=== PATIENT | male | born 1950 | race Caucasian/White ===

== ENCOUNTER 2023-06-11 18:58 | Emergency (ER) | payer SELFPAY ==
[~2023-06-11] VITALS: Ht 165.1 cm; Wt 56.7 kg
[2023-06-11 19:12] VITALS: BP 111/60; PULSE 84; RESP 16; TEMP 98.6; O2SAT 99
[2023-06-11 21:34] LABS: BASOPHILS % 1.6 % (0.0-2.0); DIFFERENTIAL COMMENT 0; EOSINOPHILS % 2.1 % (0.0-5.0); HEMATOCRIT. 38.7 % (42.0-52.0); HEMOGLOBIN. 12.9 g/dL (14.0-18.0); LYMPHOCYTES % 21.1 % (20.0-50.0); MEAN CORPUSCULAR HEMOGLOBIN 34.2 pg (28.0-32.0); MEAN CORPUSCULAR HGB CONC 33.3 g/dL (31.0-37.0); MEAN CORPUSCULAR VOLUME 102.6 fL (80.0-94.0); MEAN PLATELET VOLUME 8.7 fl (7.4-10.4); MONOCYTES % 8.2 % (2.0-8.0); PLATELET 98 x1000/uL (130-400); RED BLOOD CELL COUNT 3.77 mill/uL (4.7-6.1); RED CELL DISTRIBUTION WIDTH 15.6 % (11.6-14.6); WHITE BLOOD COUNT 4.6 x1000/uL (4.5-11.0)
[2023-06-11 21:35] LABS: PROTHROMBIN TIME 10.5 sec (9.6-11.0)
[2023-06-11 21:43] LABS: ALANINE AMINOTRANSFERASE 118 IU/L (10-49); ALBUMIN 3.9 g/dL (3.2-4.8); ASPARTATE AMINOTRANSFERASE 232 IU/L (<34); BILIRUBIN TOTAL 0.5 mg/dL (0.1-1.0); CALCIUM 9.8 mg/dL (8.7-10.4); CARBON DIOXIDE 24 mEq/L (21-32); CHLORIDE 107 mEq/L (98-107); CREATININE 0.8 mg/dL (0.6-1.3); ETHANOL BLOOD 253 mg/dL (<10); GLUCOSE 121 mg/dL (70-105); POTASSIUM 4.7 mEq/L (3.5-5.1); PROTEIN TOTAL 6.4 g/dL (6.0-8.3); SODIUM 144 mEq/L (136-145); TROPONIN I HIGH SENSITIVITY 5 ng/L (3.0-53); UREA NITROGEN BLOOD 14 mg/dL (9-23)
== END 2023-06-11 21:34 | disposition home or self-care (01) ==
LOC: ER 18:58
DX: F10.129 Alcohol abuse with intoxication, unspecified (principal); J45.909 Unspecified asthma, uncomplicated; E11.9 Type 2 diabetes mellitus without complications; I10 Essential (primary) hypertension; Z98.890 Other specified postprocedural states; Y90.8 Blood alcohol level of 240 mg/100 ml or more
CPT/HCPCS: 36415; 71045; 80053; 80320; 84484; 85025; 93005; 99285; G0480

== ENCOUNTER 2023-06-12 11:20 | Emergency (ER) | payer SELFPAY ==
[~2023-06-12] VITALS: Ht 167.6 cm; Wt 77.0 kg
[2023-06-12 11:57] VITALS: O2SAT 97
[2023-06-12 12:25] LABS: BASOPHILS % 1.5 % (0.0-2.0); EOSINOPHILS % 1.4 % (0.0-5.0); HEMATOCRIT. 40.4 % (42.0-52.0); HEMOGLOBIN. 13.2 g/dL (14.0-18.0); LYMPHOCYTES % 22.4 % (20.0-50.0); MEAN CORPUSCULAR HEMOGLOBIN 33.8 pg (28.0-32.0); MEAN CORPUSCULAR HGB CONC 32.6 g/dL (31.0-37.0); MEAN CORPUSCULAR VOLUME 103.8 fL (80.0-94.0); MONOCYTES % 5.2 % (2.0-8.0); NEUTROPHILS % 69.5 % (40.0-76.0); RED BLOOD CELL COUNT 3.89 mill/uL (4.7-6.1); RED CELL DISTRIBUTION WIDTH 15.4 % (11.6-14.6)
[2023-06-12 12:29] LABS: DIFFERENTIAL COMMENT 1
[2023-06-12 12:44] LABS: ALANINE AMINOTRANSFERASE 107 IU/L (10-49); ALBUMIN 4.2 g/dL (3.2-4.8); ASPARTATE AMINOTRANSFERASE 181 IU/L (<34); BILIRUBIN TOTAL 0.8 mg/dL (0.1-1.0); CALCIUM 9.4 mg/dL (8.7-10.4); CARBON DIOXIDE 25 mEq/L (21-32); CHLORIDE 102 mEq/L (98-107); CREATININE 0.6 mg/dL (0.6-1.3); GLUCOSE 92 mg/dL (70-105); POTASSIUM 4.6 mEq/L (3.5-5.1); PROTEIN TOTAL 7.7 g/dL (6.0-8.3); SODIUM 136 mEq/L (136-145); UREA NITROGEN BLOOD 13 mg/dL (9-23)
[2023-06-12 13:28] LABS: PLATELET 112 x1000/uL (130-400)
[2023-06-12 21:00] VITALS: BP 146/59; PULSE 81; RESP 16; TEMP 98
== END 2023-06-12 21:15 | disposition home or self-care (01) ==
LOC: ER 12:31
DX: B34.9 Viral infection, unspecified (principal); J45.909 Unspecified asthma, uncomplicated; R51.9 Headache, unspecified; E11.9 Type 2 diabetes mellitus without complications; I10 Essential (primary) hypertension; Z98.890 Other specified postprocedural states; Z20.822 Contact with and (suspected) exposure to COVID-19
CPT/HCPCS: 36415; 80053; 85025; 87426; 87804; 93005; 99284

== ENCOUNTER 2024-03-12 11:47 | Inpatient (IN) | payer MEDICARE, MEDICAID ==
[~2024-03-12] VITALS: Ht 157.5 cm; Wt 66.2 kg
[2024-03-12] MEDS ORDERED: MVI, ADULT NO.1 10 ML, FOLIC ACID 1 MG, THIAMINE HCL 100 MG in SODIUM CHLORIDE 0.9% 1,0... IV ONE (12:00)
[2024-03-12] MEDS ORDERED: TETANUS, DIPHTHERIA, PERTUSSIS VAC/PF 0.5ML (>10YR OLD) IM ONE (12:15)
[2024-03-12] MEDS ORDERED: LIDOCAINE HCL/EPINEPHRINE 1%-EPI 1:100,000 10ML VIAL INFIL ONE (13:45)
[2024-03-12] MEDS ORDERED: LIDOCAINE HCL/EPINEPHRINE 1%-EPI 1:100,000 20ML VIAL INFIL NR (14:00)
[2024-03-12 15:09] LABS: BASOPHILS % 1.2 % (0.0-2.0); EOSINOPHILS % 1.3 % (0.0-5.0); HEMATOCRIT. 41.9 % (42.0-52.0); HEMOGLOBIN. 14.2 g/dL (14.0-18.0); LYMPHOCYTES % 19.3 % (20.0-50.0); MEAN CORPUSCULAR HEMOGLOBIN 33.1 pg (28.0-32.0); MEAN CORPUSCULAR HGB CONC 33.9 g/dL (31.0-37.0); MEAN CORPUSCULAR VOLUME 97.7 fL (80.0-94.0); MONOCYTES % 6.8 % (2.0-8.0); NEUTROPHILS % 71.4 % (40.0-76.0); PLATELET 180 x1000/uL (130-400); RED BLOOD CELL COUNT 4.29 mill/uL (4.7-6.1); RED CELL DISTRIBUTION WIDTH 15.5 % (11.6-14.6); WHITE BLOOD COUNT 8.6 x1000/uL (4.5-11.0)
[2024-03-12 15:12] LABS: CHLORIDE 110 mEq/L (98-107); SODIUM 142 mEq/L (136-145)
[2024-03-12 15:13] LABS: CARBON DIOXIDE 22 mEq/L (21-32)
[2024-03-12 15:14] LABS: CALCIUM 9.1 mg/dL (8.7-10.4)
[2024-03-12 15:18] LABS: CREATININE 0.7 mg/dL (0.6-1.3); GLUCOSE 88 mg/dL (70-105); UREA NITROGEN BLOOD 12 mg/dL (9-23)
[2024-03-12 15:19] LABS: ETHANOL BLOOD 235 mg/dL (<10)
[2024-03-12] MEDS ORDERED: BACITRACIN 14GM TUBE TOP ONE (16:15)
[2024-03-12] MEDS ORDERED: DIAZEPAM 5 MG/ML 2ML SYR IV ONE (16:45)
[2024-03-12] MEDS ORDERED: FOLIC ACID 1 MG, THIAMINE HCL 100 MG, MVI, ADULT NO.1 10 ML in DEXTROSE 5% WATER 1,000 ML IV ONE (16:45)
[2024-03-12] MEDS: FOLIC ACID 1 MG, THIAMINE HCL 100 MG, MVI, ADULT NO.1 10 ML in DEXTROSE 5% WATER 1,000 ML IV ONE (18:00)
[2024-03-12] MEDS ORDERED: CLONIDINE 0.1MG TABLET PO PRN (21:19)
[2024-03-12] MEDS ORDERED: LORAZEPAM 2MG/ML INJ IV PRN (21:30)
[2024-03-12] MEDS ORDERED: ACETAMINOPHEN 325MG TABLET PO PRN (21:30)
[2024-03-12] MEDS ORDERED: IPRATROPIUM/ALBUTEROL 0.5-3(2.5)MG/3ML NEB HHN PRN (21:30)
[2024-03-12] MEDS: CLONIDINE 0.1MG TABLET PO PRN (21:36)
[2024-03-12] MEDS: DIAZEPAM 5 MG/ML 2ML SYR IV NR (22:35)
[2024-03-13 00:35] VITALS: BP 135/60; PULSE 81; RESP 18; TEMP 36.14
[2024-03-13 04:00] VITALS: PULSE 88; RESP 19; TEMP 36.114; O2SAT 99
[2024-03-13 06:31] LABS: CHLORIDE 107 mEq/L (98-107); SODIUM 141 mEq/L (136-145)
[2024-03-13 06:32] LABS: CALCIUM 9.4 mg/dL (8.7-10.4); CARBON DIOXIDE 28 mEq/L (21-32)
[2024-03-13 06:37] LABS: CREATININE 0.8 mg/dL (0.6-1.3); GLUCOSE 114 mg/dL (70-105); UREA NITROGEN BLOOD 14 mg/dL (9-23)
[2024-03-13 06:39] LABS: ALANINE AMINOTRANSFERASE 38 IU/L (10-49); ASPARTATE AMINOTRANSFERASE 40 IU/L (<34); BILIRUBIN TOTAL 1.4 mg/dL (0.1-1.0); PROTEIN TOTAL 6.7 g/dL (6.0-8.3)
[2024-03-13 07:14] LABS: EOSINOPHILS % 0.8 % (0.0-5.0); HEMOGLOBIN. 12.8 g/dL (14.0-18.0); LYMPHOCYTES % 14.7 % (20.0-50.0); MEAN CORPUSCULAR HEMOGLOBIN 32.1 pg (28.0-32.0); MEAN CORPUSCULAR HGB CONC 32.9 g/dL (31.0-37.0); MEAN CORPUSCULAR VOLUME 97.7 fL (80.0-94.0); MEAN PLATELET VOLUME 8.9 fl (7.4-10.4); MONOCYTES % 10.6 % (2.0-8.0); NEUTROPHILS % 72.9 % (40.0-76.0); PLATELET 152 x1000/uL (130-400); RED CELL DISTRIBUTION WIDTH 15.5 % (11.6-14.6); WHITE BLOOD COUNT 8.1 x1000/uL (4.5-11.0)
[2024-03-13 08:00] VITALS: BP 135/54; PULSE 69; RESP 18; TEMP 36.72516; O2SAT 98
[2024-03-13] MEDS: MULTIVITAMINS,THER W-MINERALS TABLET PO SCH (08:31)
[2024-03-13] MEDS: FOLIC ACID 1MG TABLET PO SCH (08:31)
[2024-03-13] MEDS: THIAMINE HCL 100MG TABLET PO SCH (08:33)
[2024-03-13 11:44] LABS: *AMPHETAMINES SCREEN URINE NEGATIVE (NEGATIVE); *BARBITURATES SCREEN URINE NEGATIVE (NEGATIVE); *BENZODIAZEPINES SCREEN URINE NEGATIVE (NEGATIVE); *COCAINE SCREEN URINE NEGATIVE (NEGATIVE); CANNABINOID URINE SCREEN NEGATIVE (NEGATIVE); ECSTASY MDMA SCREEN URINE NEGATIVE (NEGATIVE); METHADONE URINE SCREEN NEGATIVE (NEGATIVE); OPIATES URINE SCREEN NEGATIVE (NEGATIVE); PHENCYCLIDINE URINE SCREEN NEGATIVE (NEGATIVE)
[2024-03-13 12:00] VITALS: BP 135/54; PULSE 69; RESP 18; TEMP 36.72516; O2SAT 92
[2024-03-13] MEDS: ACETAMINOPHEN 325MG TABLET PO PRN (14:49)
[2024-03-13 16:00] VITALS: BP 110/69; PULSE 70; RESP 20; TEMP 36.61404; O2SAT 98
[2024-03-13 20:00] VITALS: BP 141/52; PULSE 75; RESP 18; TEMP 36.3918; O2SAT 98
[2024-03-14] VITALS: BP 125/44; PULSE 64; RESP 18; TEMP 37.2252; O2SAT 99
[2024-03-14 04:00] VITALS: BP 116/50; PULSE 62; RESP 19; TEMP 36.61404; O2SAT 100
[2024-03-14 08:00] VITALS: BP 103/91; PULSE 77; RESP 18; TEMP 36.50292; O2SAT 93
[2024-03-14] MEDS ORDERED: GADOTERATE MEGLUMINE 5 MMOL/10 ML VIAL IV ONE (10:26)
[2024-03-14] MEDS ORDERED: NALOXONE HCL 0.4MG/ML VIAL IV PRN (11:45)
[2024-03-14 12:00] VITALS: BP 123/52; PULSE 66; RESP 18; TEMP 36.6696; O2SAT 98
[2024-03-14] MEDS: HYDROCODONE/ACETAMINOPHEN 5/325MG TABLET PO PRN (12:36)
[2024-03-14 16:00] VITALS: BP 119/53; PULSE 68; RESP 18; TEMP 36.50292; O2SAT 99
[2024-03-15] MEDS: ONDANSETRON HCL 4MG/2ML INJ IV PRN (00:07)
[2024-03-15 08:00] VITALS: BP 125/60; PULSE 72; RESP 18; TEMP 36.89184; O2SAT 97
[2024-03-15 12:00] VITALS: BP 132/76; PULSE 66; RESP 18; TEMP 36.50292; O2SAT 98
[2024-03-15 16:00] VITALS: BP 123/56; PULSE 69; RESP 18; TEMP 36.61404; O2SAT 98
[2024-03-15 20:00] VITALS: BP 128/62; PULSE 70; RESP 19; TEMP 36.44736; O2SAT 99
[2024-03-15] MEDS: DOCUSATE SODIUM 100MG CAPSULE PO PRN (21:42)
[2024-03-16] VITALS: BP 132/70; PULSE 74; RESP 20; TEMP 36.78072; O2SAT 100
[2024-03-16 04:00] VITALS: BP 119/69; PULSE 61; RESP 18; TEMP 36.44736; O2SAT 99
[2024-03-16 08:00] VITALS: BP 112/54; PULSE 69; RESP 18; TEMP 35.94732; O2SAT 98
[2024-03-16] MEDS ORDERED: FOLI-43 PO (11:11)
[2024-03-16] MEDS ORDERED: THIA100T72 PO (11:11)
[2024-03-16] MEDS ORDERED: MULT-230 MT (11:11)
[2024-03-16 12:00] VITALS: BP 136/64; PULSE 73; RESP 16; TEMP 36.05844; O2SAT 99
[2024-03-16 13:20] VITALS: BP 136/64; PULSE 73; TEMP 96.9; O2SAT 99
[2024-03-16 15:45] VITALS: BP 134/57; PULSE 69; RESP 20; TEMP 36.28068; O2SAT 100
== END 2024-03-16 17:30 | disposition home health service (06) | DRG 914 ==
LOC: ER 11:47 → 5WST 17:02 → EDBEDREQ 17:12 → 8WST 23:44
PROVIDERS: ADMIT Family Medicine Adult Medicine; ATTEND Family Medicine Adult Medicine
DX: S09.8XXA Other specified injuries of head, initial encounter (principal); M48.54XA Collapsed vertebra, not elsewhere classified, thoracic region, initial encounter for fracture; F10.139 Alcohol abuse with withdrawal, unspecified; F10.129 Alcohol abuse with intoxication, unspecified; E11.9 Type 2 diabetes mellitus without complications; M13.822 Other specified arthritis, left elbow; M48.02 Spinal stenosis, cervical region; W03.XXXA Other fall on same level due to collision with another person, initial encounter; Y93.89 Activity, other specified; Y92.89 Other specified places as the place of occurrence of the external cause; Y99.8 Other external cause status; Y90.7 Blood alcohol level of 200-239 mg/100 ml; Z79.4 Long term (current) use of insulin
CPT/HCPCS: 36415; 71045; 72141; 72148; 72157; 72170; 73070; 80048; 80053; 80305; 80320; 83880; 85025; 99291; A9577; C1893; J2405; J3411; J3490; J7030; J7070; G0480